=== PATIENT | male | born 1990 | race Caucasian/White ===

== ENCOUNTER 2019-09-09 17:11 | Emergency (ER) | payer SELFPAY ==
[~2019-09-09] VITALS: Ht 177.8 cm; Wt 63.0 kg
--- NOTE | 2019-09-09 17:14 | NUR ---
BIB [facility] AND [employer] OFFICERS FROM [facility],DECREASED LOC AFTER GIVEN HALDOL WHEN HE WOKE UP AND BECAME AGITATED AFTER NARCAN WAS GIVEN, TO ER BED 14, HOOKED TO MONITOR, CHANGED TO HOSP GOWN, WARM BLANKET PROVIDED. AWAITING MD EVANS
--- NOTE | 2019-09-09 17:18 | NUR ---
SEEN BY DR MORFIN
[2019-09-09 17:58] LABS: BASOPHILS % (AUTO) 0.3 % (0.0-2.0); EOSINOPHILS % (AUTO) 0.6 % (0.0-6.0); HEMATOCRIT 42 % (39-51); HEMOGLOBIN 14.1 g/dL (13.5-17.5); LYMPHOCYTES # (AUTO) 1.4 /CMM (0.8-4.8); LYMPHOCYTES % (AUTO) 21.3 % (20.0-44.0); MEAN CORPUSCULAR HGB CONC 34 g/dl (31.0-36.0); MEAN CORPUSCULAR VOLUME 79 fL (80-96); MONOCYTES # (AUTO) 0.3 /CMM (0.1-1.30); MONOCYTES % (AUTO) 5.3 % (2.0-12.0); NEUTROPHILS # (AUTO) 4.8 /CMM (1.8-8.9); NEUTROPHILS % (AUTO) 72.5 % (43.0-81.0); PLATELET COUNT (AUTO) 171 /CMM (150-450); RED BLOOD CELL COUNT(AUTO) 5.26 MIL/uL (4.5-6.0); WHITE BLOOD COUNT (AUTO) 6.6 K/uL (4.3-11.0)
[2019-09-09 18:06] LABS: CALCIUM, SERUM 8.9 mg/dL (8.5-10.1); CARBON DIOXIDE 28 mmol/L (21-32); CHLORIDE 105 mmol/L (98-107); CREATININE 0.9 mg/dL (0.6-1.3); GLUCOSE 102 mg/dL (74-106); POTASSIUM 3.9 mmol/L (3.5-5.1); SODIUM SERUM 141 mmol/L (136-145); UREA NITROGEN, BLOOD 14 mg/dL (7-18)
[2019-09-09 18:11] LABS: ALANINE AMINOTRANSFERASE 105 U/L (12-78); ALBUMIN 3.9 g/dL (3.4-5.0); ALCOHOL, BLOOD < 3 mg/dL (0-0); ALKALINE PHOSPHATASE 69 U/L (46-116); ASPARTATE AMINOTRANSFERASE 37 U/L (15-37); BILIRUBIN,DIRECT 0.1 mg/dL (0.0-0.2); BILIRUBIN,TOTAL 0.5 mg/dL (0.2-1.0); TOTAL PROTEIN, SERUM 7.5 g/dL (6.4-8.2)
[2019-09-09 18:15] LABS: ACETAMINOPHEN < 2 ug/ml (10-30); SALICYLATE < 2.8 mg/dL (2.8-20.0)
--- NOTE | 2019-09-09 18:42 | NUR ---
PATIENT AWAKE, VERBALLY RESPONSIVE, ASKING FOR WATER. AWARE OF WHAT HE DID EARLIER, STATED HE TOOK HEROINE. SITTER AT BEDSIDE
--- NOTE | 2019-09-09 18:46 | NUR ---
Patient awake non distres @ this time noted [employer] @ bedside patient in custody
--- NOTE | 2019-09-09 19:04 | NUR ---
Per Dr. Steven no in and out cath urine @ this time
--- NOTE | 2019-09-09 19:14 | NUR ---
TRansfer care to Aurelia SARMIENTO
[2019-09-09 21:30] VITALS: BP 126/78
--- NOTE | 2019-09-09 22:04 | NUR ---
Patient discharged to home in stable condition. Written and verbal after care instructions given. Patient verbalizes understanding of instruction.
== END 2019-09-09 22:05 ==
LOC: ER 17:11
DX: T40.691A Poisoning by other narcotics, accidental (unintentional), initial encounter (principal); R45.1 Restlessness and agitation; R41.82 Altered mental status, unspecified; Z60.2 Problems related to living alone; Y92.89 Other specified places as the place of occurrence of the external cause
CPT/HCPCS: 71045; 80048; 80076; 80307; 80329; 85025; 99284; G0480; 36415